=== PATIENT | female | born 2000 | race Caucasian/White ===

== ENCOUNTER 2022-12-13 01:56 | Observation (INO) | payer OTHER ==
[~2022-12-13] VITALS: Ht 160 cm; Wt 94.3 kg
[2022-12-13 04:08] LABS: CLARITY URINE TURBID (CLEAR); COLOR URINE YELLOW (YELLOW); KETONES URINE NEGATIVE (NEGATIVE); LEUKOCYTE ESTERASE URINE 2+ (NEGATIVE); NITRITE URINE NEGATIVE (NEGATIVE); OCCULT BLOOD URINE NEGATIVE (NEGATIVE); PH URINE 8.5 (4.5-8.0); PROTEIN URINE TRACE (NEGATIVE); SPECIFIC GRAVITY URINE 1.026 (1.005-1.030); UROBILINOGEN URINE 0.2 E.U./dL (0.2-1.0)
[2022-12-13] MEDS ORDERED: PREN1TAB78 PO (05:08)
[2022-12-13] MEDS ORDERED: ASPI-1497 PO (05:08)
== END 2022-12-13 06:25 | disposition home or self-care (01) ==
LOC: 8 EST LDRP 01:56
PROVIDERS: ADMIT Specialist; ATTEND Specialist
DX: O26.892 Other specified pregnancy related conditions, second trimester (principal); R10.30 Lower abdominal pain, unspecified; N89.8 Other specified noninflammatory disorders of vagina; O62.9 Abnormality of forces of labor, unspecified; Z3A.25 25 weeks gestation of pregnancy
CPT/HCPCS: 59025; 81003; 87070; 87077; 87210; G0378; 99281

== ENCOUNTER 2024-08-10 10:59 | Emergency (ER) | payer OTHER ==
[~2024-08-10] VITALS: Ht 160 cm; Wt 99.8 kg
[2024-08-10 10:59] VITALS: O2SAT 99
[~2024-08-10 10:59] MED LIST: ASPI-1497 PO; PREN1TAB78 PO
[2024-08-10 11:33] VITALS: BP 126/81; PULSE 92; RESP 16; TEMP 97.9; O2SAT 98
[2024-08-10 12:18] LABS: BASOPHILS % 0.2 % (0.0-2.0); EOSINOPHILS % 0.5 % (0.0-5.0); HEMATOCRIT. 44.2 % (36.0-48.0); HEMOGLOBIN. 14.3 g/dL (12.0-16.0); LYMPHOCYTES % 16.1 % (20.0-50.0); MEAN CORPUSCULAR HEMOGLOBIN 28.7 pg (28.0-32.0); MEAN CORPUSCULAR HGB CONC 32.4 g/dL (31.0-37.0); MEAN CORPUSCULAR VOLUME 88.4 fL (81.0-99.0); MEAN PLATELET VOLUME 7.6 fl (7.4-10.4); MONOCYTES % 5.4 % (2.0-8.0); NEUTROPHILS % 77.8 % (40.0-76.0); PLATELET 244 x1000/uL (130-400)
[2024-08-10 12:25] LABS: CHLORIDE 103 mEq/L (98-107); POTASSIUM 3.9 mEq/L (3.5-5.1); SODIUM 137 mEq/L (136-145)
[2024-08-10 12:26] LABS: CALCIUM 9.4 mg/dL (8.7-10.4); CARBON DIOXIDE 25 mEq/L (21-32)
[2024-08-10 12:31] LABS: CREATININE 0.6 mg/dL (0.6-1.0); GLUCOSE 103 mg/dL (70-105); UREA NITROGEN BLOOD 9 mg/dL (9-23)
[2024-08-10 12:33] LABS: ALANINE AMINOTRANSFERASE 30 IU/L (10-49); ALBUMIN 4.5 g/dL (3.2-4.8); ASPARTATE AMINOTRANSFERASE 19 IU/L (<34); BILIRUBIN DIRECT 0.3 mg/dL (<=3.0); BILIRUBIN TOTAL 1.1 mg/dL (0.1-1.0); PROTEIN TOTAL 7.9 g/dL (6.0-8.3)
[2024-08-10 12:55] LABS: TROPONIN I HIGH SENSITIVITY < 4 ng/L (3.0-34)
[2024-08-10 13:19] LABS: HCG SCREEN NEGATIVE
[2024-08-10] MEDS ORDERED: AMOX-494 MT (16:41)
== END 2024-08-10 18:17 | disposition home or self-care (01) ==
LOC: ER 10:59
DX: J18.9 Pneumonia, unspecified organism (principal)
CPT/HCPCS: 36415; 71045; 80048; 80076; 84484; 84703; 85025; 93005; 99285